=== PATIENT | male | born 1950 | race Hispanic/Latino ===

== ENCOUNTER 2022-06-09 18:07 | Emergency (ER) | payer OTHER ==
[~2022-06-09] VITALS: Ht 180.3 cm; Wt 97.5 kg
[2022-06-09 18:12] VITALS: BP 171/69
[2022-06-09] MEDS ORDERED: KETOROLAC 15MG/ML VIAL (15MG/ML) IM ONE (19:00)
[2022-06-09] MEDS ORDERED: KETO10TA2 PO (19:08)
== END 2022-06-09 19:21 | disposition home or self-care (01) ==
LOC: EDH 18:07
DX: M54.50 Low back pain, unspecified (principal); E11.9 Type 2 diabetes mellitus without complications; E78.00 Pure hypercholesterolemia, unspecified; I10 Essential (primary) hypertension; Z90.49 Acquired absence of other specified parts of digestive tract
CPT/HCPCS: 99283; 96372; J1885

== ENCOUNTER 2022-06-13 04:46 | Emergency (ER) | payer OTHER ==
[~2022-06-13] VITALS: Ht 177.8 cm; Wt 93.0 kg
[~2022-06-13 04:46] MED LIST: KETO10TA2 PO
[2022-06-13] MEDS: HYDROCODONE/ACETAMINOPHEN 10/325 MG TAB PO ONE (05:21)
[2022-06-13] MEDS: KETOROLAC 60 MG VIAL (30MG/ML) IM ONE (05:22)
[2022-06-13] MEDS ORDERED: TRAM1TAB2 PO (06:06)
[2022-06-13 06:24] VITALS: BP 134/78
== END 2022-06-13 06:26 | disposition home or self-care (01) ==
LOC: EDH 04:46
DX: M54.50 Low back pain, unspecified (principal); M54.16 Radiculopathy, lumbar region; E11.9 Type 2 diabetes mellitus without complications; E78.00 Pure hypercholesterolemia, unspecified; I10 Essential (primary) hypertension; Z90.49 Acquired absence of other specified parts of digestive tract; Z98.890 Other specified postprocedural states; Z79.899 Other long term (current) drug therapy
CPT/HCPCS: 99283; 96372; J1885